=== PATIENT | male | born 1975 | race Caucasian/White ===

== ENCOUNTER 2021-12-18 10:54 | Emergency (ER) | payer MEDICAID, OTHER ==
[~2021-12-18] VITALS: Ht 175.3 cm; Wt 80.8 kg
[~2021-12-18 10:54] MED LIST: PRON INH
[2021-12-18 11:19] VITALS: BP 152/91
--- NOTE | 2021-12-18 11:23 | NUR ---
PT TO KAR[facility] FLORES
--- NOTE | 2021-12-18 12:15 | NUR ---
US AT BEDSIDE
[2021-12-18 12:53] LABS: ANION GAP 13.4 (8-16); CARBON DIOXIDE 28.7 mmol/L (21-32); CREATININE 0.9 mg/dL (0.6-1.3); POTASSIUM 4.1 mmol/L (3.5-5.1); TOTAL BILIRUBIN 0.4 mg/dL (0.0-1.0)
[2021-12-18 12:59] LABS: BASOPHILS % (AUTO) 0.3 % (0.0-2.0); EOSINOPHILS # (AUTO) 0.1 K/uL (0-0.4); EOSINOPHILS % (AUTO) 0.8 % (0.0-4.0); HEMATOCRIT 47.6 % (36-52); LYMPHOCYTES # (AUTO) 1.6 K/uL (2.0-11.5); LYMPHOCYTES % (AUTO) 14.3 % (20.5-51.1); MEAN CORPUSCULAR HEMOGLOBIN 30 pg (27-31); MEAN CORPUSCULAR HGB CONC 34 g/dL (33-37); MONOCYTES # (AUTO) 0.9 K/uL (0.8-1.0); MONOCYTES % (AUTO) 8.1 % (1.7-9.3); NEUTROPHILS # (AUTO) 8.6 K/uL (1.8-7.7); NEUTROPHILS % (AUTO) 76.5 % (42.2-75.2); PLATELET COUNT (AUTO) 308 K/uL (140-450); RED BLOOD CELL COUNT(AUTO) 5.29 MIL/uL (4.20-6.10); RED CELL DISTRIBUTION WIDTH 13.5 % (11.6-13.7); WHITE BLOOD COUNT (AUTO) 11.2 K/uL (4.8-10.8)
--- NOTE | 2021-12-18 13:00 | NUR ---
46YO MALE PT C/O R ARM PAIN X3DAYS. PT STATES PAIN AT MOST ON MOVEMENT. DENIES RECENT INJURY . ARM PRESENTS REDDENED AND MILD SWELLING. CAP REFILL <3 THROUGH OUT ARM. DENIES TAKING MEDICATION FOR PAIN. DENIES CHEST PAIN , N/V/D, SOB, FEVER OR CHILLS. PT AAOX3, NO VISIBLE DISTRESS. HX: HLD, ASTHMA NKA
[2021-12-18 14:05] VITALS: BP 148/85
[2021-12-18] MEDS ORDERED: IBUP-1842 PO (14:29)
--- NOTE | 2021-12-18 14:44 | NUR ---
Patient discharged with v/s stable. Written and verbal after care instructions given and explained. Patient verbalized understanding. Ambulatory with steady gait. All questions addressed prior to discharge. Advised to follow up with PMD.
== END 2021-12-18 14:44 | disposition home or self-care (01) ==
LOC: MED 10:54
DX: M79.89 Other specified soft tissue disorders (principal); J45.909 Unspecified asthma, uncomplicated; E78.5 Hyperlipidemia, unspecified; F17.210 Nicotine dependence, cigarettes, uncomplicated; Z79.899 Other long term (current) drug therapy
CPT/HCPCS: 36415; 73080; 80053; 85025; 85379; 93971; 99285; Q0092